=== PATIENT | female | born 1965 | race African-American/Black ===

== ENCOUNTER 2020-01-15 10:31 | Emergency (ER) | payer MEDICAID ==
[2020-01-15] MEDS ORDERED: MORPHINE 2 MG/ML CARPUJECT IVP STA (10:50)
--- NOTE | 2020-01-15 10:53 | ED Physician Documentation ---
PD HPI UPPER EXT INJURY - Stated complaint Stated Complaint: GLF RT HAND/HIP - Chief complaint Chief Complaint: Trauma Ext - History obtained from History obtained from: Patient (54-year-old woman had a trip and fall into the side of a trailer. She has severe pain from the right wrist, she hit her head and has a headache but there was no loss of consciousness. She complains of right chest wall pain and left thumb pain.) Review of Systems Ten Systems: 10 systems reviewed and negative Throat: reports: Reviewed and negative Cardiac: reports: Chest pain / pressure. 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 : None HEENT: None Psych: None Musculoskeletal: None Derm: None - Past Surgical History Past Surgical History: No - Present Medications Home Medications: Ambulatory Orders Medication Instructions Recorded Confirmed Hydrocodone/Acetaminophen 1 - 2 each PO Q6H PRN #20 tablet 01/15/20 [Hydrocodon-Acetaminophen 5-325] - Allergies Allergies/Adverse Reactions: Allergies Allergy/AdvReac Type Severity Reaction Status Date / Time amoxicillin AdvReac Rash Verified 01/15/20 10:39 - Social History Does the pt smoke?: No Smoking Status: Never smoker - Immunizations Immunizations are current?: No - POLST Patient has POLST: No PD ED PE NORMAL - Vitals Vital signs reviewed: Yes - General General: Alert and oriented X 3, Other (Appears uncomfortable) - HEENT HEENT: PERRL, EOMI - Neck Neck: Supple, no meningeal sign, No bony TTP - Cardiac Cardiac: RRR, No murmur - Respiratory Respiratory: No respiratory distress, Other (Quite tender to the lower ribs on the left and also some right upper quadrant tenderness without surgical signs) - Abdomen Abdomen: Soft - Back Back: No CVA TTP, No spinal TTP - Extremities Extremities: Other (Mildly tender about the left thumb without deformity or limited range of motion. There is an obvious deformity of the right wrist with limited range of motion but normal neurovascular) - Neuro Neuro: Alert and oriented X 3, Normal speech Results - Vitals Vitals: Vital Signs - 24 hr 01/15/20 01/15/20 10:36 12:00 Temperature 36.5 C Heart Rate 64 60 Respiratory 19 16 Rate Blood Pressure 143/83 H 146/90 H O2 Saturation 100 98 Oxygen O2 Source Room air - Labs Labs: Laboratory Tests 01/15/20 01/15/20 11:00 11:00 WBC 7.2 RBC 4.80 Hgb 10.8 L Hct 35.3 L MCV 73.5 L MCH 22.5 L MCHC 30.6 L RDW 14.6 Plt Count 277 MPV 8.7 Neut # (Auto) 4.1 Lymph # (Auto) 2.5 [place] # (Auto) 0.5 Eos # (Auto) 0.1 Baso # (Auto) 0.1 Absolute Nucleated RBC 0.00 Nucleated RBC % 0.0 Sodium 140 Potassium 3.4 L Chloride 105 Carbon Dioxide 25 Anion Gap 10.0 BUN 19 Creatinine 0.7 Estimated GFR (MDRD) 106 Glucose 120 H Calcium 9.5 Total Bilirubin 0.7 AST 21 ALT 19 Alkaline Phosphatase 81 Total Protein 7.9 Albumin 4.2 Globulin 3.7 Albumin/Globulin Ratio 1.1 Lipase 29 - Rads (name of study) R hand Radiology: EMP read contemporaneously (First MC frx and suspect nondisplaced radial frx) r wrist Radiology: EMP read contemporaneously (Mildly displaced and minimally angulated both bone forearm fracture distally) CT head, C-spine, chest abdomen and pelvis Radiology: EMP read contemporaneously (Nondisplaced right ninth and 10th rib fractures without other traumatic abnormality) Procedures - Splint (location) RUE Splint applied by: Tech Type of splint: Long arm, Sugar tong Other: Patient tolerated well, No complications, Neurovascular intact L hand/wrist Splint applied by: Tech Type of splint: Fiberglass, Short arm, Thumb spica Other: Patient tolerated well, No complications, Neurovascular intact PD MEDICAL DECISION MAKING - ED course ED course: 54-year-old woman with a fall, unfortunately broke both wrists and 2 ribs. Both wrists were splinted and she feels comfortable going home with her who is in good health and can help her with ADLs. Departure - Departure Disposition: 01 Home, Self Care Clinical Impression: Right wrist fracture Qualifiers: Encounter type: initial encounter Fracture type: closed Qualified Code(s): S62.101A - Fracture of unspecified carpal bone, right wrist, initial encounter for closed fracture Fracture of left distal radius Qualifiers: Encounter type: initial encounter Fracture type: closed Fracture morphology: Colles' Qualified Code(s): S52.532A - Colles' fracture of left radius, initial encounter for closed fracture Fracture of metacarpal, first, left hand Qualifiers: Encounter type: initial encounter Fracture type: closed Metacarpal location: base Fracture morphology: unspecified fracture morphology Fracture alignment: nondisplaced Qualified Code(s): S62.235A - Other nondisplaced fracture of base of first metacarpal bone, left hand, initial encounter for closed fracture Fall Qualifiers: Encounter type: initial encounter Qualified Code(s): W19.XXXA - Unspecified fall, initial encounter Head injury Qualifiers: Encounter type: initial encounter Qualified Code(s): S09.90XA - Unspecified injury of head, initial encounter Contusion of right chest wall Qualifiers: Encounter type: initial encounter Qualified Code(s): S20.211A - Contusion of right front wall of thorax, initial encounter Condition: Good Record reviewed to determine appropriate education?: Yes Instructions: ED Fx Forearm Radius Ulna No Redu Requ, ED Fx Thumb, ED Fx Rib Follow-Up: [facility] [Provider Group] - Within 1 week Prescriptions: Hydrocodone/Acetaminophen [Hydrocodon-Acetaminophen 5-325] 1 - 2 each PO Q6H PRN #20 tablet PRN Reason: pain Comments: Keep the splint on and dry, do not remove it. Follow-up with the orthopedic surgeons within the week, call today for an appointment. Do not drink or drive while taking narcotic pain medication. Note that many narcotic pain relievers also contain Tylenol/acetaminophen. Please ensure that your total dose of acetaminophen from all sources does not exceed 3 g (3000 mg) per day. You may get constipated while on this medication. Take a stool softener such as Colace twice a day while you are on it. Also add an yvgt-[id number]-lyspiud laxative such as senna or MiraLAX on any day that you do not have a bowel movement. If you received a narcotic pain medication or sedative while in the emergency department, do not drive for the next 24 hours.
[2020-01-15] MEDS ORDERED: IOVERSOL 320 100 ML VIAL IVP ONE ×2 (11:00→14:17)
[2020-01-15 11:02] LABS: BASOPHILS # (AUTO) 0.1 10^3/uL (0.0-0.1); BASOPHILS % (AUTO) 0.7 %; EOSINOPHILS # (AUTO) 0.1 10^3/uL (0.0-0.7); HGB - HEMOGLOBIN 10.8 g/dL (12.0-16.0); LYMPHOCYTES # (AUTO) 2.5 10^3/uL (1.5-3.5); LYMPHOCYTES % (AUTO) 34.6 %; MEAN CORPUSCULAR HEMOGLOBIN 22.5 pg (27.0-31.0); MEAN CORPUSCULAR HGB CONC 30.6 g/dL (32.0-36.0); MEAN CORPUSCULAR VOLUME 73.5 fL (81.0-99.0); MEAN PLATELET VOLUME 8.7 fL (7.9-10.8); MONOCYTES # (AUTO) 0.5 10^3/uL (0.0-1.0); MONOCYTES % (AUTO) 6.2 %; NEUTROPHILS # (AUTO) 4.1 10^3/uL (1.5-6.6); NEUTROPHILS % (AUTO) 56.8 %; PLT - PLATELET COUNT 277 10^3/uL (130-450); RED CELL DISTRIBUTION WIDTH 14.6 % (12.0-15.0); WHITE BLOOD COUNT 7.2 x10^3/uL (4.8-10.8)
[2020-01-15 11:18] LABS: ALBUMIN 4.2 g/dL (3.2-5.5); ALBUMIN/GLOBULIN RATIO 1.1 (1.0-2.2); BILIRUBIN,TOTAL 0.7 mg/dL (0.2-1.0); CALCIUM 9.5 mg/dL (8.5-10.3); CREATININE 0.7 mg/dL (0.4-1.0); TOTAL PROTEIN 7.9 g/dL (6.7-8.2)
--- NOTE | 2020-01-15 11:25 | XRAY Report ---
Reason: wrist inj Procedure Date: 01/15/2020 Accession Number: [id number] / [id number] Procedure: XR - Wrist 3 View RT CPT Code: Final Report FULL RESULT: EXAM: RIGHT WRIST RADIOGRAPHY EXAM DATE: 01/15/2020 11:08 AM. CLINICAL HISTORY: Wrist injury. COMPARISON: None. TECHNIQUE: 3 views. FINDINGS: Bones: There is a compressive fracture of the distal radial metaphysis, with fracture lines extending to the radiocarpal articulation. Mildly displaced medial fracture fragment. No significant dorsal angulation. Lucency through the base of the ulnar styloid suggesting nondisplaced fracture. No fracture of the carpal bones identified. IMPRESSION: Fractures of the distal radius and ulna. RADIA
--- NOTE | 2020-01-15 11:27 | XRAY Report ---
Reason: hand inj Procedure Date: 01/15/2020 Accession Number: [id number] / [id number] Procedure: XR - Hand 3 View LT CPT Code: Final Report FULL RESULT: EXAM: LEFT HAND RADIOGRAPHY EXAM DATE: 01/15/2020 11:08 AM. CLINICAL HISTORY: Hand injury. COMPARISON: WRIST 3 VIEW RT 01/15/2020 10:45 AM. TECHNIQUE: 3 views. FINDINGS: Bones: There is a fracture at the base of the first metacarpal, mildly displaced. On one view, there is a lucency of the distal radius extending to the radiocarpal articulation. No fractures of the carpal bones detected. No fractures of the phalanges identified or the second through fourth metacarpals. IMPRESSION: Fracture at the base of the first metacarpal. Suspect a fracture of the distal radius. RADIA
--- NOTE | 2020-01-15 12:11 | CT Report ---
Reason: fall distracting inj Procedure Date: 01/15/2020 Accession Number: [id number] / [id number] Procedure: CT - CERVICAL SPINE WO CPT Code: Final Report FULL RESULT: EXAM: CT CERVICAL SPINE WITHOUT CONTRAST DATE: 01/15/2020 11:59 AM. HISTORY: Fall. Distracting injury. Neck pain. COMPARISONS: None. TECHNIQUE: Thin-section axial images were acquired of the cervical spine without contrast. Post-processing: Coronal and sagittal reformats. Other: None. In accordance with CT protocol optimization, one or more of the following dose reduction techniques were utilized for this exam: automated exposure control, adjustment of mA and/or KV based on patient size, or use of iterative reconstructive technique. FINDINGS: Alignment: No scoliosis or spondylolisthesis. Bones: Mild degenerative spurring. No bony lesions. Interspace Levels/Facets: Mild multilevel facet arthropathy. Mild disk space narrowing and degenerative changes at C5-C6 and C6-C7. Musculature: Normal. No fatty atrophy. Other: The paravertebral and prevertebral soft tissues are unremarkable. Lung apices are clear. Visualized thyroid gland is unremarkable. No enlarged cervical lymph nodes. Vascular calcifications. Skull base is unremarkable. IMPRESSION: 1. No acute cervical spine abnormalities are identified. 2. Mild degenerative changes of the cervical spine. RADIA
--- NOTE | 2020-01-15 12:24 | CT Report ---
Reason: head inj Procedure Date: 01/15/2020 Accession Number: [id number] / [id number] Procedure: CT - HEAD WO CPT Code: Final Report FULL RESULT: EXAM: CT HEAD EXAM DATE: 01/15/2020 11:35 AM. CLINICAL HISTORY: Fall. Head injury. Neck pain. COMPARISON: None. TECHNIQUE: Multiaxial CT images were obtained from the foramen magnum to the vertex. Reformats: Sagittal and coronal. IV contrast: None. In accordance with CT protocol optimization, one or more of the following dose reduction techniques were utilized for this exam: automated exposure control, adjustment of mA and/or KV based on patient size, or use of iterative reconstructive technique. FINDINGS: Parenchyma: No intraparenchymal hemorrhage. No evidence of mass, midline shift, or CT findings of infarction. Lima-white differentiation is distinct. Extraaxial Spaces: Normal for age. No subdural or epidural collections identified. Ventricles: Normal in size and position. Sinuses and Orbits: Mild bilateral sphenoid sinus mucosal thickening. Remainder of the paranasal sinuses and mastoid air cells are clear. Bones: No evidence of fracture or calvarial defect. Other: Globes and orbits are unremarkable. There appears to be right superior parietal scalp edema. IMPRESSION: 1. No acute intracranial abnormality is identified. 2. No acute fracture. RADIA
--- NOTE | 2020-01-15 12:31 | CT Report ---
Reason: fall chest inj Procedure Date: 01/15/2020 Accession Number: [id number] / [id number] Procedure: CT - CHEST W CPT Code: Final Report FULL RESULT: EXAM: CT CHEST, ABDOMEN, AND PELVIS WITH IV CONTRAST EXAM DATE: 01/15/2020 12:07 PM. CLINICAL HISTORY: Fall, chest injury. COMPARISONS: None. TECHNIQUE: Routine helical CT imaging was performed through the chest. IV contrast: 100 mL of Optiray 320 contrast. Reconstructions: Coronal and sagittal. In accordance with CT protocol optimization, one or more of the following dose reduction techniques were utilized for this exam: automated exposure control, adjustment of mA and/or KV based on patient size, or use of iterative reconstructive technique. FINDINGS: Chest: No pneumothorax. No pleural fluid collections. Mild posterior dependent atelectasis. Minimal pleural-based consolidation in the lateral right upper lobe. No pathologically-enlarged lymph nodes. No cardiomegaly or pericardial effusion. Mild heterogeneity of the thyroid. Abdomen and pelvis: No focal lesions detected of the liver, spleen, pancreas, adrenal glands, or kidneys. Unremarkable appearance of the gallbladder. No aneurysmal dilatation of the abdominal aorta. The contour of the uterus and urinary bladder appear within normal limits. No bowel obstruction. No evidence of diverticulitis, colitis, or appendicitis. No free air or free fluid. There are subtle lucencies at the medial aspects of the right 9th and 10th ribs suggesting nondisplaced fractures. Axial series 3 image 55 and 62. No fractures detected elsewhere on current study. IMPRESSION: Nondisplaced fractures indicated at the medial right 9th and 10th ribs. No pneumothorax or pleural fluid collections detected. No focal abnormalities identified caudal to the diaphragm. RADIA
--- NOTE | 2020-01-15 12:35 | CT Report ---
Reason: iv only ruq ttp trauma Procedure Date: 01/15/2020 Accession Number: [id number] / [id number] Procedure: CT - Abdomen/Pelvis W CPT Code: Final Report FULL RESULT: EXAM: CT ABDOMEN AND PELVIS EXAM DATE: 01/15/2020 12:09 PM. CLINICAL HISTORY: Iv only ruq ttp trauma. Fall. COMPARISONS: CHEST W 01/15/2020 11:40 AM. TECHNIQUE: Routine helical CT imaging was performed through the abdomen and pelvis. IV contrast: 100 cc OPTIRAY 320. Enteric contrast: No. Reconstructions: Coronal and sagittal. In accordance with CT protocol optimization, one or more of the following dose reduction techniques were utilized for this exam: automated exposure control, adjustment of mA and/or KV based on patient size, or use of iterative reconstructive technique. FINDINGS: Lung Bases: Minimal wispy dependent bibasilar atelectasis. Liver: Normal. No masses. Gallbladder/Bile Ducts: Unremarkable. Spleen: Normal. Pancreas: Normal. Adrenal Glands: Normal. Kidneys: Mild left hydronephrosis without hydroureter, suggesting ureteropelvic junction stenosis. Kidneys enhance normally and symmetrically. No perinephric fat stranding. Peritoneal Cavity/Bowel: Normal. No free fluid, free air or adenopathy. No masses or acute inflammatory process. The appendix is well visualized and normal. Pelvic Organs: The bladder, uterus, and ovaries are unremarkable. Vasculature: Punctate calcification in the infrarenal abdominal aorta. Otherwise normal. Bones: No fracture or malalignment is identified. Other: Body wall unremarkable. IMPRESSION: Normal abdomen and pelvis CT. RADIA
[2020-01-15 12:47] VITALS: BP 135/86
== END 2020-01-15 13:06 | disposition home or self-care (01) ==
LOC: ED 10:31
DX: S22.41XA Multiple fractures of ribs, right side, initial encounter for closed fracture (principal); S52.501A Unspecified fracture of the lower end of right radius, initial encounter for closed fracture; S52.601A Unspecified fracture of lower end of right ulna, initial encounter for closed fracture; S52.502A Unspecified fracture of the lower end of left radius, initial encounter for closed fracture; S62.232A Other displaced fracture of base of first metacarpal bone, left hand, initial encounter for closed fracture; S09.90XA Unspecified injury of head, initial encounter; S20.211A Contusion of right front wall of thorax, initial encounter; W01.198A Fall on same level from slipping, tripping and stumbling with subsequent striking against other object, initial encounter
CPT/HCPCS: 29105; 36415; 70450; 71260; 72125; 73110; 73130; 74177; 80053; 83690; 85025; 96374; 99284; Q9967

== ENCOUNTER 2020-08-14 08:00 | Outpatient (CLI) | payer MEDICAID | END 2020-08-14 23:59 | disposition home or self-care (01) | LOC: LAB.R 08:00 | PROVIDERS: ATTEND Nurse Practitioner | DX: J06.9 Acute upper respiratory infection, unspecified (principal); Z20.828 Contact with and (suspected) exposure to other viral communicable diseases | CPT/HCPCS: 87275; 87276 ==

== ENCOUNTER 2021-03-13 10:50 | Outpatient (CLI) | payer MEDICAID | END 2021-03-13 10:51 | disposition short-term general hospital (02) | LOC: EMS 10:50 | DX: S61.512A Laceration without foreign body of left wrist, initial encounter (principal); S59.912A Unspecified injury of left forearm, initial encounter; W10.8XXA Fall (on) (from) other stairs and steps, initial encounter | CPT/HCPCS: A0425; A0429; A0999 ==

== ENCOUNTER 2021-04-28 09:05 | Outpatient (CLI) | payer MEDICAID ==
--- NOTE | 2021-05-06 13:37 | Mammography Report ---
BILATERAL DIGITAL SCREENING MAMMOGRAM 3D/2D: 04/28/2021 CLINICAL: Routine screening. No prior exams were available for comparison. There are scattered fibroglandular elements in both br easts. There is a 1 cm oval high density focal asymmetry with a circumscribed margin in the right breast at 4 o'clock middle depth. No other significant masses, calcifications, or other findings are seen in either breast. IMPRESSION: INCOMPLETE: NEEDS ADDITIONAL IMAGING EVALUATION The 1 cm oval high density focal asymmetry in the right breast is indeterminate. A diagnostic mammog meri and ultrasound is recommended. This exam was interpreted at Station ID: [id number]. NOTE: For mammograms, a report in lay terms will be sent to the patient. Approximately 15% of breast malignancies will not be visualized mammographically. In the management of a palpable breast mass, a negative mammogram must not discourage biopsy of a clinically suspicious lesion. Electronically Signed By: Riat argueta/dandre:05/05/2021 14:26:24 ACR BI-RADS Category 0: Incomplete 3340F PARENCHYMAL PATTERN: (A) - The breast(s) demonstrate(s) scattered fibroglandular densities. BI-RADS CATEGORY: (0) - 0 Mammo and [place] [id number] Immediate follow-up LATERALITY: (B)
== END 2021-04-28 09:06 | disposition home or self-care (01) ==
LOC: DI.N 09:05
DX: Z12.31 Encounter for screening mammogram for malignant neoplasm of breast (principal); N64.89 Other specified disorders of breast

== ENCOUNTER 2021-05-27 08:00 | Outpatient (CLI) | payer MEDICAID ==
[2021-05-27 12:47] LABS: BASOPHILS # (AUTO) 0.1 10^3/uL (0.0-0.1); BASOPHILS % (AUTO) 0.8 %; EOSINOPHILS # (AUTO) 0.1 10^3/uL (0.0-0.7); EOSINOPHILS % (AUTO) 2.3 %; HCT - HEMATOCRIT 36.1 % (37.0-47.0); HGB - HEMOGLOBIN 10.7 g/dL (12.0-16.0); LYMPHOCYTES # (AUTO) 2.6 10^3/uL (1.5-3.5); MEAN CORPUSCULAR HGB CONC 29.6 g/dL (32.0-36.0); MEAN CORPUSCULAR VOLUME 74.1 fL (81.0-99.0); MEAN PLATELET VOLUME 9.7 fL (7.9-10.8); MONOCYTES # (AUTO) 0.4 10^3/uL (0.0-1.0); MONOCYTES % (AUTO) 7.2 %; NEUTROPHILS # (AUTO) 2.7 10^3/uL (1.5-6.6); NEUTROPHILS % (AUTO) 45.5 %; PLT - PLATELET COUNT 317 10^3/uL (130-450); RED BLOOD COUNT 4.87 10^6/uL (4.20-5.40); RED CELL DISTRIBUTION WIDTH 14.6 % (12.0-15.0)
[2021-05-27 13:13] LABS: BILIRUBIN,URINE NEGATIVE (NEGATIVE); GLUCOSE, URINE (UA) NEGATIVE (NEGATIVE); KETONES,URINE (UA) NEGATIVE (NEGATIVE); LEUKOCYTE ESTERASE, URINE NEGATIVE (NEGATIVE); NITRITE,URINE NEGATIVE (NEGATIVE); OCCULT BLOOD,URINE TRACE-LYSE (NEGATIVE); PROTEIN,URINE NEGATIVE (NEGATIVE); UROBILINOGEN,URINE 0.2 (NORMAL) E.U./dL (NORMAL)
[2021-05-27 13:17] LABS: CLARITY,URINE CLEAR (CLEAR)
[2021-05-27 13:21] LABS: ALBUMIN 4.2 g/dL (3.2-5.5); ALBUMIN/GLOBULIN RATIO 1.2 (1.0-2.2); ALKALINE PHOSPHATASE 77 IU/L (42-121); ALT ALANINE AMINOTRANSFERASE 24 IU/L (10-60); AST ASPARTATE AMINOTRANSFERASE 19 IU/L (10-42); BILIRUBIN,TOTAL 0.6 mg/dL (0.2-1.0); BUN - BLOOD UREA NITROGEN 18 mg/dL (6-20); CALCIUM 9.3 mg/dL (8.5-10.3); CARBON DIOXIDE - CO2 25 mmol/L (21-32); CHLORIDE 105 mmol/L (101-111); CHOL/HDL RATIO 4.1 (<4.4); CHOLESTEROL 293 mg/dL; CREATININE 0.7 mg/dL (0.4-1.0); GFR - MDRD 87 (>89); GLUCOSE 97 mg/dL (70-100); HDL CHOLESTEROL 72 mg/dL; LDL CHOLESTEROL,CALCULATED 194 mg/dL; LDL/HDL RATIO 2.7 (<4.4); POTASSIUM 4.1 mmol/L (3.5-5.0); SODIUM 140 mmol/L (135-145); TOTAL PROTEIN 7.8 g/dL (6.7-8.2); TRIGLYCERIDES 137 mg/dL; VLDL CHOLESTEROL 27 mg/dL
[2021-05-27 13:22] LABS: THYROID STIMULATING HORMONE 6.27 uIU/mL (0.34-5.60)
[2021-05-27 13:30] LABS: CRP - C-REACTIVE PROTEIN < 1.0 mg/dL (0-1.0)
[2021-05-27 13:53] LABS: BACTERIA,URINE Rare /HPF (None Seen); RBC,URINE 0-5 /HPF (0-5); SQUAMOUS EPITHELIAL CELL,UR RARE Squamous (<= Few); WBC,URINE 0-3 /HPF (0-5)
[2021-05-27 14:08] LABS: FREE T4 (FREE THYROXINE) 0.85 ng/dL (0.58-1.64)
== END 2021-05-27 23:59 | disposition home or self-care (01) ==
LOC: LAB.WCP 08:00
PROVIDERS: ATTEND Nurse Practitioner
DX: S22.41XA Multiple fractures of ribs, right side, initial encounter for closed fracture (principal); S52.532A Colles' fracture of left radius, initial encounter for closed fracture; R42 Dizziness and giddiness
CPT/HCPCS: 36415; 80053; 80061; 81001; 82306; 83721; 84439; 84443; 85025; 85651; 86140; 87086